=== PATIENT | male | born 1980 | race Caucasian/White ===

== ENCOUNTER 2024-04-15 16:34 | Inpatient (IN) | payer MEDICAID ==
[2024-04-15 18:46] LABS: BASOPHILS ABSOLUTE AUTO 0.1 K/mm3 (0.0-0.2); BASOPHILS PERCENT AUTO 0.3 % (0.0-1.0); EOSINOPHILS ABSOLUTE AUTO 0.1 K/mm3 (0.0-0.4); EOSINOPHILS PERCENT AUTO 0.6 % (0.0-6.0); HEMOGLOBIN 14.2 gm/dl (14.0-18.0); IMMATURE GRAN ABSOLUTE AUTO 0.11 K/mm3 (0.00-0.05); IMMATURE GRAN PERCENT AUTO 0.6 % (0.0-0.4); LYMPHOCYTES ABSOLUTE AUTO 2.4 K/mm3 (1.0-4.8); LYMPHOCYTES PERCENT AUTO 12.4 % (24.0-44.0); MEAN CORPUSCULAR HEMOGLOBIN 32.4 pg (28.0-32.0); MEAN CORPUSCULAR HGB CONC 34.6 g/dl (32.0-36.0); MEAN CORPUSCULAR VOLUME 93.6 fl (83.0-99.0); MEAN PLATELET VOLUME 8.8 fl (9.4-12.4); MONOCYTES ABSOLUTE AUTO 1.6 K/mm3 (0.0-0.8); NEUTROPHILS ABSOLUTE AUTO 15.3 K/mm3 (1.8-7.7); NEUTROPHILS PERCENT AUTO 78.1 % (41.0-71.0); PLATELET COUNT,PLT 221 K/mm3 (150-400); RED BLOOD CELL COUNT 4.38 M/mm3 (4.52-5.90); WHITE BLOOD CELL COUNT,WBC 19.53 K/mm3 (3.9-11.3)
[2024-04-15 19:09] LABS: LACTIC ACID 2.1 mmol/L (0.4-2.0)
[2024-04-15 19:23] LABS: A/G RATIO 0.7 (1-2); ALBUMIN 3.1 g/dl (3.4-5.0); ANION GAP 10.1 (5-15); BILIRUBIN TOTAL 0.7 mg/dL (0.2-1.0); CALCIUM 8.3 mg/dL (8.5-10.1); EST CRCL DRUG DOSING (CG) 109.6 mL/min; POTASSIUM,K 3.1 mEq/L (3.5-5.1); PROTEIN TOTAL,TP 7.3 g/dl (6.4-8.2)
[2024-04-15] MEDS ORDERED: Sennosides/Docusate Sodium 50-8.6 MG Tab PO PRN (19:46)
[2024-04-15] MEDS ORDERED: Melatonin 3 MG Tab PO PRN (19:46)
[2024-04-15] MEDS ORDERED: Ondansetron 4 MG/2 ML SDV IV PRN (19:46)
[2024-04-15] MEDS ORDERED: Naloxone 0.4 MG/ML SDV IVPUSH PRN (19:46)
[2024-04-15] MEDS ORDERED: Albuterol 6.7 GM Inhaler INH PRN (19:51)
[2024-04-15] MEDS: Cefepime 2 GM in Sodium Chloride 0.9% 50 ML IV SCH (20:21)
[2024-04-15] MEDS: Sodium Chloride 0.9% 1,000 ML IV SCH (20:21)
[2024-04-15] MEDS: Potassium Chloride 20 MEQ Tab.ER PO ONE (20:24)
[2024-04-15] MEDS: VANCOmycin 2 GM/400 ML 2 GM in Premix Bag 1 BAG IV ONE (21:30)
[2024-04-15] MEDS: oxyCODONE 5 MG Tab PO PRN (22:02)
[2024-04-15] MEDS: Famotidine 20 MG/2 ML SDV IVPUSH SCH (22:03)
[2024-04-16] MEDS: Morphine 2 MG/ML SYRINGE IVPUSH PRN (04:16)
[2024-04-16 04:50] LABS: BASOPHILS PERCENT AUTO 0.3 % (0.0-1.0); EOSINOPHILS ABSOLUTE AUTO 0.2 K/mm3 (0.0-0.4); EOSINOPHILS PERCENT AUTO 1.1 % (0.0-6.0); HEMATOCRIT 39.6 % (42.0-52.0); HEMOGLOBIN 13.4 gm/dl (14.0-18.0); IMMATURE GRAN ABSOLUTE AUTO 0.05 K/mm3 (0.00-0.05); IMMATURE GRAN PERCENT AUTO 0.3 % (0.0-0.4); LYMPHOCYTES ABSOLUTE AUTO 2.1 K/mm3 (1.0-4.8); LYMPHOCYTES PERCENT AUTO 13.9 % (24.0-44.0); MEAN CORPUSCULAR HEMOGLOBIN 31.9 pg (28.0-32.0); MEAN CORPUSCULAR HGB CONC 33.8 g/dl (32.0-36.0); MEAN CORPUSCULAR VOLUME 94.3 fl (83.0-99.0); MEAN PLATELET VOLUME 8.9 fl (9.4-12.4); MONOCYTES ABSOLUTE AUTO 1.3 K/mm3 (0.0-0.8); MONOCYTES PERCENT AUTO 8.9 % (0.0-8.0); NEUTROPHILS ABSOLUTE AUTO 11.2 K/mm3 (1.8-7.7); NEUTROPHILS PERCENT AUTO 75.5 % (41.0-71.0); PLATELET COUNT,PLT 193 K/mm3 (150-400); WHITE BLOOD CELL COUNT,WBC 14.86 K/mm3 (3.9-11.3)
[2024-04-16 05:25] LABS: ANION GAP 11.8 (5-15); BUN/CREATININE RATIO 12.5 (14-18); C-REACTIVE PROTEIN 8.87 mg/dL (<0.30); CALCIUM 8.1 mg/dL (8.5-10.1); CREATININE 0.8 mg/dL (0.7-1.3); MAGNESIUM 1.9 mg/dL (1.8-2.4); PHOSPHORUS 2.8 mg/dL (2.6-4.7); POTASSIUM,K 3.8 mEq/L (3.5-5.1)
[2024-04-16] MEDS: Acetaminophen 325 MG Tab PO PRN (08:44)
[2024-04-16] MEDS: Enoxaparin 40 MG/0.4 ML Syringe SUBCUT SCH (08:44)
[2024-04-16] MEDS: VANCOmycin 1.5 GM/300 ML 1.5 GM in Premix Bag 1 BAG IV SCH ×2 (09:32→23:32)
[2024-04-16] MEDS: Potassium Phosphates 30 MMOLE in Sodium Chloride 0.9% 500 ML IV ONE (11:20)
[2024-04-16] MEDS: Cefepime 2 GM in Sodium Chloride 0.9% 100 ML IV SCH (12:42)
[2024-04-16] MEDS: Formoterol/Mometasone 200-5 MCG 8.8 GM Inhaler INH SCH (21:03)
[2024-04-17 04:46] LABS: BASOPHILS ABSOLUTE AUTO 0.1 K/mm3 (0.0-0.2); BASOPHILS PERCENT AUTO 0.5 % (0.0-1.0); EOSINOPHILS ABSOLUTE AUTO 0.2 K/mm3 (0.0-0.4); EOSINOPHILS PERCENT AUTO 1.9 % (0.0-6.0); HEMATOCRIT 42.9 % (42.0-52.0); HEMOGLOBIN 14.4 gm/dl (14.0-18.0); IMMATURE GRAN ABSOLUTE AUTO 0.09 K/mm3 (0.00-0.05); IMMATURE GRAN PERCENT AUTO 0.8 % (0.0-0.4); LYMPHOCYTES ABSOLUTE AUTO 1.9 K/mm3 (1.0-4.8); LYMPHOCYTES PERCENT AUTO 17.3 % (24.0-44.0); MEAN CORPUSCULAR HEMOGLOBIN 31.6 pg (28.0-32.0); MEAN CORPUSCULAR HGB CONC 33.6 g/dl (32.0-36.0); MEAN CORPUSCULAR VOLUME 94.1 fl (83.0-99.0); MEAN PLATELET VOLUME 8.5 fl (9.4-12.4); MONOCYTES ABSOLUTE AUTO 1.2 K/mm3 (0.0-0.8); MONOCYTES PERCENT AUTO 10.9 % (0.0-8.0); NEUTROPHILS ABSOLUTE AUTO 7.6 K/mm3 (1.8-7.7); NEUTROPHILS PERCENT AUTO 68.6 % (41.0-71.0); PLATELET COUNT,PLT 250 K/mm3 (150-400); RED BLOOD CELL COUNT 4.56 M/mm3 (4.52-5.90); WHITE BLOOD CELL COUNT,WBC 11.09 K/mm3 (3.9-11.3)
[2024-04-17 05:11] LABS: ANION GAP 11.2 (5-15); BUN/CREATININE RATIO 11.1 (14-18); C-REACTIVE PROTEIN 6.62 mg/dL (<0.30); CALCIUM 8.8 mg/dL (8.5-10.1); CREATININE 0.9 mg/dL (0.7-1.3); EST CRCL DRUG DOSING (CG) 121.78 mL/min; PHOSPHORUS 4.2 mg/dL (2.6-4.7); POTASSIUM,K 4.2 mEq/L (3.5-5.1)
[2024-04-17] MEDS: VANCOmycin 1.5 GM/300 ML 300 ML ONE (11:08)
[2024-04-17] MEDS: oxyCODONE 5 MG Tab PO PRN (14:08)
== END 2024-04-17 14:33 | disposition home or self-care (01) | DRG 872 ==
LOC: JD.ED 16:34 → JD.MS 19:47
PROVIDERS: ADMIT Student in an Organized Health Care Education/Training Program; ATTEND Student in an Organized Health Care Education/Training Program
DX: A41.9 Sepsis, unspecified organism (principal); E87.20 Acidosis, unspecified; I82.612 Acute embolism and thrombosis of superficial veins of left upper extremity; I89.1 Lymphangitis; R65.20 Severe sepsis without septic shock; J45.909 Unspecified asthma, uncomplicated; F17.210 Nicotine dependence, cigarettes, uncomplicated; Z88.2 Allergy status to sulfonamides; Z88.8 Allergy status to other drugs, medicaments and biological substances; Z79.51 Long term (current) use of inhaled steroids; Z79.899 Other long term (current) drug therapy; Z90.89 Acquired absence of other organs; Z98.890 Other specified postprocedural states
CPT/HCPCS: 36415; 76881-26-LT; 76881-LT; 80048; 80053; 80202; 83605; 83735; 84100; 85025; 86140; 87040; 93971-26-LT; 93971-LT; 99284; A9270-GY; J0692; J1650; J2270; J3372; J3475; J3490; J7030; J7040

== ENCOUNTER 2024-09-06 20:03 | Emergency (ER) | payer MEDICAID ==
[2024-09-06] MEDS ORDERED: Sodium Chloride 0.9% 10 ML Syringe FLUSH PRN (20:42)
[2024-09-06 20:49] LABS: BASOPHILS PERCENT AUTO 0.3 % (0.0-1.0); EOSINOPHILS ABSOLUTE AUTO 0.1 K/mm3 (0.0-0.4); EOSINOPHILS PERCENT AUTO 0.4 % (0.0-6.0); HEMATOCRIT 41.8 % (42.0-52.0); HEMOGLOBIN 14.4 gm/dl (14.0-18.0); IMMATURE GRAN ABSOLUTE AUTO 0.08 K/mm3 (0.00-0.05); IMMATURE GRAN PERCENT AUTO 0.5 % (0.0-0.4); LYMPHOCYTES ABSOLUTE AUTO 1.8 K/mm3 (1.0-4.8); LYMPHOCYTES PERCENT AUTO 11.6 % (24.0-44.0); MEAN CORPUSCULAR HEMOGLOBIN 31.8 pg (28.0-32.0); MEAN CORPUSCULAR HGB CONC 34.4 g/dl (32.0-36.0); MEAN CORPUSCULAR VOLUME 92.3 fl (83.0-99.0); MEAN PLATELET VOLUME 8.6 fl (9.4-12.4); MONOCYTES ABSOLUTE AUTO 1.1 K/mm3 (0.0-0.8); MONOCYTES PERCENT AUTO 7.1 % (0.0-8.0); NEUTROPHILS ABSOLUTE AUTO 12.5 K/mm3 (1.8-7.7); NEUTROPHILS PERCENT AUTO 80.1 % (41.0-71.0); PLATELET COUNT,PLT 280 K/mm3 (150-400); RED BLOOD CELL COUNT 4.53 M/mm3 (4.52-5.90); WHITE BLOOD CELL COUNT,WBC 15.65 K/mm3 (3.9-11.3)
[2024-09-06] MEDS: Ondansetron 4 MG/2 ML SDV IVPUSH ONE (21:01)
[2024-09-06] MEDS: Morphine 4 MG/ML Syringe IVPUSH ONE (21:02)
[2024-09-06 21:09] LABS: INR 1.02; PROTHROMBIN TIME 10.8 SECONDS (9.7-12.0)
[2024-09-06 21:15] LABS: ALANINE AMINOTRANSFERASE,ALT 90 U/L (16-63); ALBUMIN 3.8 g/dl (3.4-5.0); ALKALINE PHOSPHATASE 53 U/L (46-116); ANION GAP 16.4 (5-15); ASPARTATE AMNIOTRANSFERASE,AST 54 U/L (15-37); BILIRUBIN TOTAL 0.8 mg/dL (0.2-1.0); BLOOD UREA NITROGEN,BUN 16 mg/dL (7-18); BUN/CREATININE RATIO 14.5 (14-18); CALCIUM 8.8 mg/dL (8.5-10.1); CARBON DIOXIDE,CO2 23 mEq/L (21-32); CHLORIDE,CL 103 mEq/L (98-107); CREATININE 1.1 mg/dL (0.7-1.3); EST CRCL DRUG DOSING (CG) 99.64 mL/min; ESTIMATED GFR 85 mL/min (>60); GLUCOSE RANDOM 101 mg/dL (70-99); POTASSIUM,K 3.4 mEq/L (3.5-5.1); PROTEIN TOTAL,TP 7.8 g/dl (6.4-8.2); SODIUM,NA 139 mEq/L (136-145)
[2024-09-06 21:16] LABS: TROPONIN I HIGH SENSITIVITY < 4 pg/mL (<=76)
[2024-09-06] MEDS: Sodium Chloride 0.9% 10 ML Syringe FLUSH PRN (22:09)
[2024-09-06] MEDS: Iopamidol 612 MG/ML 100 ML Bottle IVPUSH ONE (22:09)
[2024-09-06] MEDS: Iopamidol 612 MG/ML 30 ML SDV IV ONE (22:09)
[2024-09-06] MEDS ORDERED: Naloxone 0.4 MG/ML SDV IVPUSH PRN (22:58)
[2024-09-06 23:04] LABS: APPEARANCE,URINE CLEAR (Clear); BILIRUBIN,URINE NEGATIVE (Negative); COLOR,URINE YELLOW (Yellow); GLUCOSE,URINE NEGATIVE (Negative); KETONES,URINE 1+ (Negative); LEUKOCYTE ESTERASE,URINE NEGATIVE (Negative); NITRITE,URINE NEGATIVE (Negative); OCCULT BLOOD,URINE TRACE-INTACT (Negative); PH,URINE 6.5 (5.0-8.0); PROTEIN,URINE 1+ (Negative); UROBILINOGEN,URINE 0.2 (0.2-1.0)
[2024-09-06] MEDS: Ketorolac 30 MG/ML SDV IVPUSH ONE (23:08)
[2024-09-06] MEDS: HYDROmorphone 0.5 MG/0.5 ML Syringe IVPUSH ONE (23:10)
[2024-09-06 23:16] LABS: BACTERIA,URINE RARE /hpf (FEW); EPITHELIAL CELLS,URINE NOT SEEN /hpf (0-5); HYALINE CASTS,URINE 0-5 /lpf (0-5); MUCUS,URINE MODERATE /hpf (FEW); RBC,URINE 0-5 /hpf (0-5); WBC,URINE 0-5 /hpf (0-5)
[2024-09-07] MEDS: Morphine 4 MG/ML Syringe IVPUSH ONE (01:33)
== END 2024-09-07 01:57 | disposition home or self-care (01) ==
LOC: JD.ED 20:03
DX: S22.42XA Multiple fractures of ribs, left side, initial encounter for closed fracture (principal); S42.022A Displaced fracture of shaft of left clavicle, initial encounter for closed fracture; J98.6 Disorders of diaphragm; J45.909 Unspecified asthma, uncomplicated; Z88.8 Allergy status to other drugs, medicaments and biological substances; Z79.51 Long term (current) use of inhaled steroids; Z79.899 Other long term (current) drug therapy; V80.010A Animal-rider injured by fall from or being thrown from horse in noncollision accident, initial encounter
CPT/HCPCS: 36415; 71045; 71260; 73000; 74177; 80053; 81001; 84484; 85025; 85610; 93005; 96374; 96375; 96376; 99284; J1885; J2270; J2405; Q9967